=== PATIENT | male | born 1950 | race Caucasian/White ===

== ENCOUNTER → 2020-12-11 | Outpatient (CLI) | payer OTHER ==
[~2020-12-11] MED LIST: ACET650T61 PO; CALC500C16 PO; FERR32TA PO; K-TA10TA PO; LEVO25TA5 PO; NEUR800T PO; PANT40TA29 PO; ROSU40TA4 PO; THERTAB52 PO; TRAM1CAP15 PO; VITA500C24 PO; VITAE40CA PO
== END ==
LOC: M LABSMTC 10:32
PROVIDERS: ATTEND Anesthesiology
DX: Z20.828 Contact with and (suspected) exposure to other viral communicable diseases (principal); Z11.59 Encounter for screening for other viral diseases

== ENCOUNTER 2020-12-16 09:55 | Day surgery (SDC) | payer OTHER ==
[~2020-12-16] VITALS: Ht 175.3 cm; Wt 63.2 kg
[~2020-12-16 09:55] MED LIST changes: +LIDOCAINE 2% 100MG/5ML SDV (FOR ANES.) As Ordered ONE; +NS 1,000 ML IV ONE; +propofoL 500 MG/50 ML VIAL As Ordered ONE
[2020-12-16] MEDS ORDERED: fentaNYL 100 MCG/2 ML INJECTION (J3010) As Ordered ONE (10:36)
[2020-12-16] MEDS ORDERED: PHENYLephrine 500MCG 5ML (100MCG/ML) SYRINGE As Ordered ONE (11:51)
[2020-12-16] MEDS ORDERED: propofoL 200 MG/20 ML VIAL As Ordered ONE (12:08)
--- NOTE | 2020-12-16 12:23 | ROOR ---
Patient Name: Dino Montoya Procedure Date: 12/16/2020 11:25 AM Date of : 1950 Age: 70 Room: [facility] Gender: Male Note Status: Finalized Procedure: Upper GI endoscopy Indications: Pharyngeal phase dysphagia Providers: Tyrese Tang MD Referring MD: Gabe Jean Baptiste MD Requesting Provider: Medicines: Monitored Anesthesia Care Complications: No immediate complications. Procedure: Pre-Anesthesia Assessment: - Prior to the procedure, a History and Physical was performed, and patient medications and allergies were reviewed. The patient is competent. The risks and benefits of the procedure and the sedation options and risks were discussed with the patient. All questions were answered and informed consent was obtained. Patient identification and proposed procedure were verified by the physician, the nurse and the carpenter packing in the endoscopy suite. Mental Status Examination: alert and oriented. Airway Examination: normal oropharyngeal airway and neck mobility. Respiratory Examination: clear to auscultation. CV Examination: normal. Prophylactic Antibiotics: The patient does not require prophylactic antibiotics. Prior Anticoagulants: The patient has taken no previous anticoagulant or antiplatelet agents. ASA Grade Assessment: III - A patient with severe systemic disease. After reviewing the risks and benefits, the patient was deemed in satisfactory condition to undergo the procedure. The anesthesia plan was to use monitored anesthesia care (MAC). Immediately prior to administration of medications, the patient was re-assessed for adequacy to receive sedatives. The heart rate, respiratory rate, oxygen saturations, blood pressure, adequacy of pulmonary ventilation, and response to care were monitored throughout the procedure. The physical status of the patient was re-assessed after the procedure. The Endoscope was introduced through the mouth, and advanced to the second part of duodenum. The upper GI endoscopy was accomplished without difficulty. The upper GI endoscopy was somewhat difficult due to enhanced patient gag reflex causing intolerance of esophageal intubation. The patient tolerated the procedure fairly well. Findings: The examined esophagus was normal. There is no endoscopic evidence of areas of erosion, esophagitis, inflammation, mucosal abnormalities, stenosis or stricture in the entire esophagus. A small hiatal hernia was present. Bilious fluid was found in the gastric fundus. The entire examined stomach was normal. The first portion of the duodenum and second portion of the duodenum were normal. Impression: - Normal esophagus. - Small hiatal hernia. - Bilious gastric fluid. - Normal stomach. - Normal first portion of the duodenum and second portion of the duodenum. - No specimens collected. Recommendation: - Discharge patient to home (ambulatory). Procedure Code(s): --- Professional --- 31300, Esophagogastroduodenoscopy, flexible, transoral; diagnostic, including collection of specimen(s) by brushing or washing, when performed (separate procedure) Diagnosis Code(s): --- Professional --- K44.9, Diaphragmatic hernia without obstruction or gangrene R13.13, Dysphagia, pharyngeal phase CPT copyright 2019 [employer]. All rights reserved. The codes documented in this report are preliminary and upon air traffic controller review may be revised to meet current compliance requirements. Tyrese Tang MD Tyrese Tang MD 12/16/2020 12:23:26 PM Electronically signed by Tyrese Tang MD Number of Addenda: 0 Note Initiated On: 12/16/2020 11:25 AM Estimated Blood Loss: Estimated blood loss: none.
--- NOTE | 2020-12-16 12:27 | ROOR ---
Patient Name: Dino Montoya Procedure Date: 12/16/2020 11:25 AM Date of : 1950 Age: 70 Room: [facility] Gender: Male Note Status: Finalized Procedure: Colonoscopy Indications: Screening for colorectal malignant neoplasm Providers: Tyrese Tang MD Referring MD: Gabe Jean Baptiste MD Requesting Provider: Medicines: Monitored Anesthesia Care Complications: No immediate complications. Procedure: Pre-Anesthesia Assessment: - Prior to the procedure, a History and Physical was performed, and patient medications and allergies were reviewed. The patient is competent. The risks and benefits of the procedure and the sedation options and risks were discussed with the patient. All questions were answered and informed consent was obtained. Patient identification and proposed procedure were verified by the physician, the nurse and the dba developer in the endoscopy suite. Mental Status Examination: alert and oriented. Airway Examination: normal oropharyngeal airway and neck mobility. Respiratory Examination: clear to auscultation. CV Examination: normal. Prophylactic Antibiotics: The patient does not require prophylactic antibiotics. Prior Anticoagulants: The patient has taken no previous anticoagulant or antiplatelet agents. ASA Grade Assessment: III - A patient with severe systemic disease. After reviewing the risks and benefits, the patient was deemed in satisfactory condition to undergo the procedure. The anesthesia plan was to use monitored anesthesia care (MAC). Immediately prior to administration of medications, the patient was re-assessed for adequacy to receive sedatives. The heart rate, respiratory rate, oxygen saturations, blood pressure, adequacy of pulmonary ventilation, and response to care were monitored throughout the procedure. The physical status of the patient was re-assessed after the procedure. The Colonoscope was introduced through the anus and advanced to the cecum, identified by appendiceal orifice and ileocecal valve. The colonoscopy was technically difficult and complex due to a redundant colon, significant looping and a tortuous colon. Successful completion of the procedure was aided by increasing the dose of sedation medication and applying abdominal pressure. The patient tolerated the procedure fairly well. The quality of the bowel preparation was adequate. Findings: Hemorrhoids were found on perianal exam. A diminutive polyp was found in the ascending colon. The polyp was flat. The polyp was removed with a cold biopsy forceps. Resection and retrieval were complete. Estimated blood loss was minimal. The entire examined colon appeared normal on direct and retroflexion views. Impression: - Hemorrhoids found on perianal exam. - One diminutive polyp in the ascending colon, removed with a cold biopsy forceps. Resected and retrieved. - The entire examined colon is normal on direct and retroflexion views. Recommendation: - Discharge patient to home (ambulatory). - Await pathology results. - Repeat colonoscopy in 10 years for surveillance. Procedure Code(s): --- Professional --- 84370, Colonoscopy, flexible; with biopsy, single or multiple Diagnosis Code(s): --- Professional --- Z12.11, Encounter for screening for malignant neoplasm of colon K64.9, Unspecified hemorrhoids K63.5, Polyp of colon CPT copyright 2019 [employer]. All rights reserved. The codes documented in this report are preliminary and upon computer language coder review may be revised to meet current compliance requirements. Tyrese Tang MD Tyrese Tang MD 12/16/2020 12:27:07 PM Electronically signed by Tyrese Tang MD Number of Addenda: 0 Note Initiated On: 12/16/2020 11:25 AM Estimated Blood Loss: Estimated blood loss: none.
== END 2020-12-16 13:09 | disposition home or self-care (01) ==
LOC: M OPP 09:55 → EDUNIT# 11:00 → M OPP 13:09
PROVIDERS: ATTEND Surgery
DX: Z12.11 Encounter for screening for malignant neoplasm of colon (principal); R13.13 Dysphagia, pharyngeal phase; R63.4 Abnormal weight loss; D12.2 Benign neoplasm of ascending colon; K64.9 Unspecified hemorrhoids; K44.9 Diaphragmatic hernia without obstruction or gangrene; E78.5 Hyperlipidemia, unspecified; E03.9 Hypothyroidism, unspecified; J45.909 Unspecified asthma, uncomplicated; F17.210 Nicotine dependence, cigarettes, uncomplicated; Z79.899 Other long term (current) drug therapy
CPT/HCPCS: 43235; 45380; 88305; J2370; J3010